=== PATIENT | female | born 1995 | race Caucasian/White ===

== ENCOUNTER 2016-11-25 20:47 | Emergency (ER) | payer OTHER ==
[~2016-11-25] VITALS: Ht 167.6 cm; Wt 95.0 kg
[~2016-11-25 20:47] MED LIST: ALPR1TAB2 PO; CEPH-443 PO; CONC27ER PO; CYCL-319 PO; HYDR-906 PO; NAPR-260 PO; NAPR-688 PO; PHEN-538 PO
[2016-11-25 20:54] VITALS: Ht 167.6 cm; Wt 95.0 kg
[2016-11-25] MEDS ORDERED: ONDANSETRON (ODT) 4 MG TAB ODT STA (21:10)
[2016-11-25] MEDS ORDERED: KETOROLAC 60 MG INJ IM STA (21:10)
[2016-11-25] MEDS ORDERED: IBUP-1542 PO (21:17)
[2016-11-25] MEDS ORDERED: ONDA4TAB14 PO (21:17)
--- NOTE | 2016-11-25 21:26 | ERD ---
ER Documentation Chief Complaint Date/Time DATE: 11/25/16 TIME: 21:24 Chief Complaint "FELL BACK HIT THE WALL EARLIER TODAY HAVE A DONG" -ALEKSANDRA COBB, NRML NEURO HPI This patient is a 21-year-old female who states that earlier today she was playing with her brother and she fell backwards and hit her head. She did not lose consciousness. There is no laceration or bleeding. She states initially she had some dizziness however that is getting better but she has pain in the back of her head now as well as some nausea. She has not vomited. At the time when she first hit her head she had a little bit of blurry vision however that is now resolving. Pain is mild to moderate. She took ibuprofen which did not help. Denies fever. ROS All systems reviewed and are negative except as per history of present illness. Medications Home Meds Active Scripts Ondansetron (Ondansetron Odt) 4 Mg Tab.rapdis, 4 MG PO Q6H Y for NAUSEA AND/OR VOMITING, #20 TAB Prov:ARACELY LADD PA-C 11/25/16 Ibuprofen* (Ibuprofen*) 600 Mg Tablet, 600 MG PO Q6, #30 TAB Prov:ARACELY LADD PA-C 11/25/16 Hydrocodone/Acetaminophen (Nardin 5-325 Tablet) 1 Each Tablet, 1 EACH PO Q6, #20 TAB Prov:ARACELY LADD PA-C 10/04/16 Naproxen* (Naprosyn*) 500 Mg Tablet, 500 MG PO BID Y for PAIN AND/OR INFLAMMATION, #30 TAB Prov:ARACELY LADD PA-C 10/04/16 Cyclobenzaprine Hcl* (Cyclobenzaprine Hcl*) 10 Mg Tablet, 10 MG PO QHS, #15 TAB Prov:ARACELY LADD PA-C 10/04/16 Cephalexin* (Keflex*) 500 Mg Capsule, 500 MG PO QID for 7 Days, CAP Prov:ALKA PAREKH PA-C 08/24/16 Phenazopyridine Hcl* (Pyridium*) 200 Mg Tab, 200 MG PO TID, #20 TAB Prov:ALKA PAREKH PA-C 08/24/16 Naproxen* (Naproxen*) 500 Mg Tablet, 500 MG PO BID, #14 TAB Prov:STEVIE CONN DO 04/22/16 Cephalexin* (Keflex*) 500 Mg Capsule, 500 MG PO QID for 3 Days, CAP Prov:STEVIE CONN DO 04/22/16 Alprazolam* (Xanax*) 1 Mg Tab, 1 MG PO Q8H Y for ANXIETY, #10 TAB Prov:BRUCE RODRIGUEZ LANCE Valerio [employer]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 Reported Medications Methylphenidate Hcl* (Concerta*) 27 Mg/Bottle Tab.osm.24, 18 MG PO 11/07/13 Allergies Allergies: Coded Allergies: No Known Allergy (Unverified , 11/07/13) PMhx/Soc Medical and Surgical Hx: pt denies Medical Hx, pt denies Surgical Hx History of Surgery: No Anesthesia Reaction: No Hx Neurological Disorder: No Hx Respiratory Disorders: No Hx Cardiac Disorders: No Hx Psychiatric Problems: Yes (ADHD) Hx Miscellaneous Medical Probl: No Hx Alcohol Use: Yes (occassional) Hx Substance Use: No Hx Tobacco Use: No Smoking Status: Current every day smoker FmHx Family History: No diabetes Physical Exam Vitals Vital Signs Date Time Temp Pulse Resp B/P Pulse Ox O2 Delivery O2 Flow Rate FiO2 11/25/16 20:54 97.6 61 18 125/66 98 Physical Exam General: well developed, well nourished, alert, nontoxic, no distress Head: normocephalic, atraumatic Eyes: PERRL, normal conjunctiva Neck: Supple, nontender, no lymphadenopathy, no midline tenderness Oropharynx: no tonsilar erythema or edema, uvula midline, no exudates, no kissing tonsils, no drooling Respiratory: Clear to auscaultation bilaterally, speaks in full sentences, no use of accesory muscles or labored breathing, no rales, ronchi, or wheezing Cardiovascular: RRR, No murmurs Back: no midline tenderness, no step offs or bony abnormalities, sensation to light touch in tact Extremities: moving all extremities normally, normal gait, no edema Neuro: CN 2-12 intact, normal speech, 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 She did not lose consciousness. Her neurological examination is normal and she is well- appearing in no distress. Her vital signs are all within normal limits. I have a low suspicion for any acute intracranial abnormality or emergency. I explained the risks and benefits of CT scan at this time we decided not to CT scan and the patient agrees. Patient was given Toradol and Zofran here in the emergency room she was discharged with ibuprofen and Zofran. Recommended this patient follow up with her primary care doctor within 48 hours or return to the emergency room for any worsening of symptoms. However this time I do believe there is suitable for outpatient management. I answered all their questions and they agreed with the plan and were discharged home. Departure Diagnosis: Primary Impression: Head injury Condition: Stable Patient Instructions: HEAD INJURY with Wake-Up (Adult) Additional Instructions: Call your primary care doctor TOMORROW for an appointment during the next 1-2 days.See the doctor sooner or return here if your condition worsens before your appointment time. ARACELY LADD PA-C Nov 25, 2016 21:26
[2016-11-25 21:48] VITALS: BP 106/56; PULSE 69; RESP 18; TEMP 97.9
== END 2016-11-25 21:48 | disposition home or self-care (01) ==
LOC: FTE 20:47
DX: S09.90XA Unspecified injury of head, initial encounter (principal); R11.0 Nausea; F17.210 Nicotine dependence, cigarettes, uncomplicated; W18.09XA Striking against other object with subsequent fall, initial encounter; Y92.9 Unspecified place or not applicable
CPT/HCPCS: 96372; J1885; Z7502; Z7610

== ENCOUNTER 2017-12-09 09:34 | Emergency (ER) | END 2017-12-09 16:57 | disposition home or self-care (01) ==